=== PATIENT | female | born 1950 | race Caucasian/White ===

== ENCOUNTER 2019-04-15 05:50 | Emergency (ER) | payer MEDICARE ==
[~2019-04-15] VITALS: Ht 177.8 cm; Wt 102.1 kg
[2019-04-15] MEDS ORDERED: BUSPIRONE HCL5 MG PO (06:02)
[2019-04-15] MEDS ORDERED: SINGULAIR 10 MG10 M1 PO (06:02)
[2019-04-15] MEDS ORDERED: NEURONTIN100 MG PO (06:02)
[2019-04-15] MEDS ORDERED: POTASSIUM20 PO (06:03)
[2019-04-15] MEDS ORDERED: DRIZALMA SPRINK60 MG PO (06:03)
[2019-04-15] MEDS ORDERED: LIPITOR40 MG PO (06:04)
[2019-04-15] MEDS ORDERED: ABILIFY 2 MG2 M1 PO (06:04)
[2019-04-15] MEDS ORDERED: NORCO 10-325 T1 EACH PO (06:05)
[2019-04-15] MEDS ORDERED: LORAZEPAM 1 MG T1 MG PO (06:05)
[2019-04-15] MEDS ORDERED: OMEPRAZOLE 20 M20 M1 PO (06:05)
[2019-04-15] MEDS ORDERED: FOSAMAX 70 MG T70 MG PO (06:06)
[2019-04-15] MEDS ORDERED: PRESERVISION A1 EAC2 PO (06:06)
[2019-04-15 07:13] LABS: ABSOLUTE EOSINOPHILS 0.1 thou/uL (0.0-0.7); ABSOLUTE LYMPHOCYTES 0.8 thou/uL (0.8-5.3); ABSOLUTE MONOCYTES 1.3 thou/uL (0.0-1.2); ABSOLUTE NEUTROPHILS 8.4 thou/uL (1.6-8.1); BASOPHILS 0.5 %; EOSINOPHILS 0.6 %; HEMATOCRIT 32.5 % (37.0-47.0); HEMOGLOBIN 10.7 gm/dL (12.0-15.0); LYMPHOCYTES 7.9 %; MCH 28.5 pg (26.0-34.0); MCHC 32.9 g/dL (28.0-37.0); MCV 86.6 fL (80.0-100.0); MONOCYTES 12.3 %; NUCLEATED RBCS 0 /100WBC; PLATELET COUNT* 265 thou/uL (150-400); POLYS 78.7 %; RBC 3.75 mil/uL (4.20-5.00); RDW-CV 16.6 % (10.5-14.5); WBC 10.6 thou/uL (4.0-11.0)
[2019-04-15 07:20] LABS: CALCIUM 8.3 mg/dL (8.5-10.1); CREATININE 0.6 mg/dL (0.6-1.3); POTASSIUM 3.9 mmol/L (3.5-5.1)
[2019-04-15 07:21] LABS: PROTIME 10.7 Seconds (9.20-11.50)
[2019-04-15 07:33] LABS: ALBUMIN 2.8 g/dL (3.4-5.0); TOTAL BILIRUBIN 0.6 mg/dL (<0.1-1.0); TOTAL PROTEIN 6.6 g/dL (6.4-8.2)
[2019-04-15 09:21] LABS: URINE BILIRUBIN NEGATIVE (Negative); URINE BLOOD NEGATIVE (Negative); URINE CLARITY CLEAR; URINE COLOR YELLOW; URINE GLUCOSE-RANDOM NEGATIVE (Negative); URINE KETONES NEGATIVE (Negative); URINE LEUKOCYTES-REFLEX NEGATIVE (Negative); URINE NITRITE-REFLEX NEGATIVE (Negative); URINE PROTEIN NEGATIVE (Negative); URINE SPECIFIC GRAVITY 1.015 (1.005-1.030)
[2019-04-15] MEDS ORDERED: BUTALB-APAP-CA1 EACH PO ×2 (09:53→11:11)
[2019-04-15] MEDS ORDERED: LEVAQUIN 500 M500 M3 PO (09:53)
[2019-04-15] MEDS ORDERED: LEVAQUIN 500 M500 MG PO (11:11)
[2019-04-15] MEDS ORDERED: ZOFRAN ODT4 MG PO (11:13)
[2019-04-15 11:20] VITALS: BP 143/78
--- NOTE | 2019-04-16 12:51 | EKG ---
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: : 1950 Requested By: Daniella Santos Order Number: [id number] MD: Vipul Kemp Measurements Intervals Raymond Rate: 79 P: IN: QRS: 8 QRSD: 92 T: 15 QT: 408 QTc: 468 Interpretive Statements sinus rhythm artifact noted Abnormal R-wave progression, early transition Nonspecific T abnormalities, inferior leads Baseline wander in lead(s) III No previous ECG available for comparison Electronically Signed On 04-16-2019 12:50:46 WEBSPHERE ADMINISTRATOR by Vipul Kemp [email or web address] <ELECTRONICALLY SIGNED> By: Vipul Kemp MD, [facility] 04/16/19 1250 3 3 Vipul Kemp MD, FACC /EPI
== END 2019-04-15 11:20 | disposition home or self-care (01) ==
LOC: M.ERS 05:50
PROVIDERS: Emergency Medicine
DX: J18.9 Pneumonia, unspecified organism (principal); R51 Headache; R11.2 Nausea with vomiting, unspecified; N64.4 Mastodynia; R10.11 Right upper quadrant pain; J45.909 Unspecified asthma, uncomplicated; F41.9 Anxiety disorder, unspecified; F31.9 Bipolar disorder, unspecified; I10 Essential (primary) hypertension; Z88.1 Allergy status to other antibiotic agents; Z88.5 Allergy status to narcotic agent; Z88.8 Allergy status to other drugs, medicaments and biological substances